=== PATIENT | male | born 1965 | race Caucasian/White ===

== ENCOUNTER 2020-09-19 07:54 | Observation (INO) | payer OTHER ==
[~2020-09-19] VITALS: Ht 182.9 cm; Wt 102.0 kg
[2020-09-19] VITALS (13 sets, daily range): BP systolic 118–174; BP diastolic 52–103
[~2020-09-19 07:54] MED LIST: PRILOSEC40 MG PO
[2020-09-19 08:29] LABS: CALCIUM 9.2 mg/dL (8.5-10.1); CREATININE 0.9 mg/dL (0.7-1.3); POTASSIUM 4.4 mmol/L (3.5-5.1)
[2020-09-19 08:36] LABS: BASOPHILS 0.6 % (0.0-2.0); EOSINOPHILS 0.5 % (0.0-3.0); HEMATOCRIT 42.3 % (42.0-52.0); HEMOGLOBIN 14.5 gm/dL (14.0-18.0); MCH 34.6 pg (26.0-34.0); MCHC 34.3 g/dL (28.0-37.0); MCV 100.8 fL (80.0-100.0); MONOCYTES 6.9 % (1.0-8.0); PLATELET COUNT 212 thou/uL (150-400); RBC 4.19 mil/uL (4.50-6.00); RDW 13.1 % (10.5-14.5); WBC 7.6 thou/uL (4.0-11.0)
[2020-09-19 08:39] LABS: ALBUMIN 4.3 g/dL (3.4-5.0); TOTAL BILIRUBIN 0.6 mg/dL (0.2-1.0); TOTAL PROTEIN 7.3 g/dL (6.4-8.2); TROPONIN-I 0.18 ng/mL (<0.06)
[2020-09-19 10:41] LABS: CHOLESTEROL 186 mg/dL (<200); HDL CHOLESTEROL 86 mg/dL (>40); LDL CHOLESTEROL 94 mg/dL (<100); TC:HDL 2.2 Ratio (Not establshd); TRIGLYCERIDE 34 mg/dL (<150); VLDL 7 mg/dL (<40)
[2020-09-19] MEDS ORDERED: VITAMIN C500 M2 PO (11:00)
[2020-09-19] MEDS ORDERED: ADVIL200 M3 PO (11:01)
--- NOTE | 2020-09-19 12:09 | 2DMMODE ---
[facility] [place] [address] 2 D/M-MODE ECHOCARDIOGRAM Name: CEASAR BREAUX Room #: 170-2 ADM IN M.R.#: [id number] Admission: 09/19/20 Attend Phys: Jed Cutler MD, Discharge: Date of : 61 Report #: [id number] THIS REPORT FOR: cc: Elizabeth Sequeira K. Steven DO Santiago, Patrick MD [facility] ~ APPROVED REPORT Study performed: 09/19/2020 10:15:31 EXAM: Comprehensive 2D, Doppler, and color-flow Echocardiogram Patient Location: ER Room #: 2 Status: routine BSA: 2.26 HR: 75 bpm BP: 153/95 mmHg Rhythm: NSR Other Information Study Quality: Good Indications Elevated Troponin Chest Pain 2D Dimensions RVDd: 37.47 mm IVSd: 12.86 (7-11mm) LVOT Diam: 22.03 (18-24mm) LVDd: 51.57 mm PWd: 13.64 (7-11mm) Ascending Ao: 37.17 (22-36mm) LVDs: 32.46 (25-40mm) Aortic Root: 33.99 mm IVC: 19.00 mm Volumes Left Atrial Volume (Systole) Single Plane 4CH: 49.02 mL Single Plane 2CH: 53.73 mL LA ESV Index: 27.00 mL/m2 Aortic Valve AoV Peak Jose Alberto.: 1.61 m/s AO Peak Gr.: 10.39 mmHg LVOT Max P.63 mmHg LVOT Max V: 1.19 m/s MARCELO Vmax: 2.81 cm2 [facility] [address] [place] [address] 2 D/M-MODE ECHOCARDIOGRAM Name: CEASAR BREAUX ELIOT Room #: 170-2 [facility] IN ..#: [id number] Admission: 09/19/20 Attend Phys: Jed Cutler, Discharge: Date of : 61 Report #: [id number] Mitral Valve E/A Ratio: 0.9 MV Decel. Time: 197.60 ms MV E Max Jose Alberto.: 0.98 m/s MV A Jose Alberto.: 1.13 m/s MV PHT: 57.30 ms IVRT: 124.57 ms Pulmonary Valve PV Peak Jose Alberto.: 0.92 m/s PV Peak Gr.: 3.40 mmHg Pulmonary Vein P Vein S: 0.60 m/s P Vein A: 0.31 m/s P Vein D: 0.35 m/s P Vein A Dur.: 115.3 msec P Vein S/D Ratio: 1.71 Left Ventricle The left ventricle is normal size. There is normal LV segmental wall motion. Mild concentric left ventricular hypertrophy. The left ventricular systolic function is normal. The left ventricular ejection fraction is within the normal range. The left ventricular diastolic function is normal. Right Ventricle The right ventricle is normal size. The right ventricular systolic function is normal. Atria The left atrium size is normal. The right atrium size is normal. Aortic Valve The aortic valve is normal in structure. No aortic regurgitation is present. There is no aortic valvular stenosis. Mitral Valve The mitral valve is normal in structure. Trace mitral regurgitation. No evidence of mitral valve stenosis. Tricuspid Valve The tricuspid valve is normal in structure. There is no tricuspid valve regurgitation noted. Pulmonic Valve The pulmonary valve is normal in structure. There is no pulmonic [facility] [address] [place] [address] 2 D/M-MODE ECHOCARDIOGRAM Name: CEASAR BREAUX [place] Room #: 170-2 ADM IN M.R.#: [id number] Admission: 09/19/20 Attend Phys: Jed Cutler, Discharge: Date of : 61 Report #: [id number] valvular regurgitation. Great Vessels The aortic root is normal in size. IVC is normal in size and collapses >50% with inspiration. Pericardium There is no pericardial effusion. <Conclusion> Normal left ventricle size Mild left ventricular concentric hypertrophy Grade 1 diastolic dysfunction EF 60%, no obvious segmental wall motion abnormality detected Normal RV size/function Normal atrial size Normal aortic/mitral valve structure and function No tricuspid valve insufficiency No pericardial effusion <ELECTRONICALLY SIGNED> By: Florencio Garcia MD, FACC 09/19/201207 07 07 Florencio Garcia MD, [facility] /INF
--- NOTE | 2020-09-19 13:53 | EKG ---
[facility] [address] [place] [address] ELECTROCARDIOGRAM REPORT Name: CEASAR BREAUX [place] Room #: 211-P ADM IN M.R.#: [id number] Admission: 09/19/20 Attend Phys: Jed Cutler MD, Discharge: Date of : 61 Report #: [id number] THIS REPORT FOR: cc: Elizabeth Sequeira K. Steven DO Lammoglia, Francisco J. MD ~ <ELECTRONICALLY SIGNED> By: Chester Johnson MD 09/19/20 1352 1350 135 Chester Johnson MD /EPI
--- NOTE | 2020-09-19 17:12 | CATHLAB ---
[facility] [place] [address] INVASIVE PROCEDURE REPORT Name: CEASAR BREAUX Room #: 211-P ADM IN M.R.#: [id number] Admission: 09/19/20 Attend Phys: Jed Cutler MD, Discharge: Date of : 61 Report #: [id number] THIS REPORT FOR: cc: Elizabeth Sequeira K. Steven DO Mancuso, Gerald M. MD [facility] ~ APPROVED REPORT Study performed: 09/19/2020 14:12:23 Patient Details Patient Status: In-Patient Room #: 211 The patient is a 54 year-old male Event Personnel Jed Cutler Wrapper Stripper, Dandy Saenz RN, Ilana Huerta RTR Scrub, Josiah Lee RTR Monitor Procedures Performed Left Heart Cath w/or w/o Coronaries [id number] [facility] Supravalvular Aortography Injection 6811168 ISVA Renal Bilateral Peripheral Angiography [id number] CVRENALBIL Art Access - R femoral artery* 94364 Initial Mod Sed Same Phys/QHP Gr5y 097308 51552 Mod Sed Same Phys/QHP Ea 681154 Indication Chest pain Procedure Narrative The Right Groin^ was infiltrated with 1% Lidocaine subcutaneous anesthesia. A PINNACLE 6FR Sheath #[id number] sheath was inserted into the RFA^. Coronary angiography was performed using coronary diagnostic catheters. The right coronary system was accessed and visualized with a 6FR JR4 catheter. The left coronary system was accessed and visualized with a 6FR AL II #[id number] catheter. The left ventricle was accessed and visualized with a PIGTAIL catheter. Left ventriculogram was performed in 30 degree projection. An aortogram of the abdominal aorta was performed. Closure device was deployed with a Fr MYNXGRIP 6/7F #[id number]. There was no hematoma. Intraoperative Conscious Sedation Sedation start time: 15:09 Case end Time: 15:50 Fentanyl 50 mcg Versed 1 mg [facility] [place] [place] [address] INVASIVE PROCEDURE REPORT Name: CEASAR BREAUX ELIOT Room #: 211-P [facility] IN .R.#: [id number] Admission: 09/19/20 Attend Phys: Jed Cutler, Discharge: Date of : 61 Report #: [id number] Fluoro Time: 7.80 minutes Dose: DAP 07168.40 cGycm2 1768 mGy Contrast Type and Amount: Omnipaque 165 ml Hemodynamics The aortic pressure is 165/82 mmHg with a mean of 113 mmHg. The left ventricular pressure is 148/2 mmHg with a mean of mmHg. The left ventricular end diastolic pressure is 22 mmHg. Conclusion #1. Normal left ventricular size and systolic function EF 60%. #2 supravalvular aortogram revealing mild aortic insufficiency and moderate dilatation ectasia of the ascending aorta. #3 left main mildly calcified giving rise to LAD and circumflex. Ostial left main 30% range. #4 the LAD is mildly diseased no occlusive disease noted this extends around the apex. #5 circumflex OM with an eccentric 20 to 30% proximal irregularity feeling 1 large OM branch widely patent anatomically nondominant. #6 large dominant right coronary artery without occlusive disease. #7 selective bilateral renal artery angiography reveals wide patency with mild ostial disease. Recommendations and plan: Patient with small elevation in troponin not clear the significance of this does not appear to be epicardial coronary disease. No evidence of a Tocco Subu. Mild supravalvular aortic ectasia dilatation is noted. Possible vasospasm although no clear evidence of this. Will initiate calcium channel curly and nitrate therapy. Transferred to CCU. <ELECTRONICALLY SIGNED> By: Jed Cutler MD, FACC 09/19/201710 10 10 Jed Cutler MD, FACC /INF
--- NOTE | 2020-09-19 17:29 | NUR ---
PT ADMITED FROM ER. ADMISSION HX AND ASSESSMENT COMPLETED. REPORT HAVING CHEST PAIN. CHEST PAIN PROTOCAL INITIATED. NEW ORDERS NOTED. HAD START CARDIAC CATH WITH NO INTERVENTION. BED REST FOR 3 HOURS. RIGHT GROIN INCISION C/D/I. NO HEMATOMA NOTED. VSS.
[2020-09-20 01:00] VITALS: BP 140/88
[2020-09-20 04:30] VITALS: BP 129/86
[2020-09-20 07:03] VITALS: BP 140/97
--- NOTE | 2020-09-20 07:29 | EKG ---
[facility] [address] [place] [address] ELECTROCARDIOGRAM REPORT Name: CEASAR BREAUX [place] Room #: 211-P ADM IN M.R.#: [id number] Admission: 09/19/20 Attend Phys: Jed Cutler MD, Discharge: Date of : 61 Report #: [id number] THIS REPORT FOR: cc: Elizabeth Sequeira K. Steven DO Santiago, Patrick MD FACC ~ <ELECTRONICALLY SIGNED> By: Florencio Garcia MD, FACC 09/20/20 0729 0756 0756 Florencio Garcia MD, FACC /EPI
--- NOTE | 2020-09-20 07:33 | EKG ---
[facility] [address] [place] [address] ELECTROCARDIOGRAM REPORT Name: CEASAR BREAUX [place] Room #: 211-P ADM IN M.R.#: [id number] Admission: 09/19/20 Attend Phys: Jed Cutler MD, Discharge: Date of : 61 Report #: [id number] THIS REPORT FOR: cc: Elizabeth Sequeira K. Steven DO Santiago, Patrick MD [facility] ~ <ELECTRONICALLY SIGNED> By: Florencio Garcia MD, FACC 09/20/20 0733 1 1 Florencio Garcia MD, FACC /EPI
[2020-09-20] MEDS ORDERED: LIPITOR40 MG PO (08:05)
[2020-09-20] MEDS ORDERED: NORVASC5 MG PO (08:05)
[2020-09-20] MEDS ORDERED: IMDUR 30 MG TAB30 M1 PO (08:05)
--- NOTE | 2020-09-20 08:33 | NUR ---
ASSUMED CARE OF THE PATIENT AT 1900; AOX4 AND STEADY ON AMBULATION; CIWA SCORING 2 OR LESS; SR/1AVB ON THE MONITOR WITH HR 70-80s; ONETIME NORVASC ADMINISTERED D/T ELEVATED DBP; C/O OF NON-CARDIAC CHEST PAIN MANAGED WITH MEDICATION; PATIENT SLEPT QUIETLY THROUGHOUT MOST OF THE NOC; PLAN IS FOR PATIENT TO HAVE EGD PROCEDURE TODAY AND D/C TO HOME; WILL CONTINUE TO MONITOR.
[2020-09-20 12:04] VITALS: BP 140/97
--- NOTE | 2020-09-20 12:39 | NUR ---
PT CAME IN WITH CHEST PAIN AND THOUGHT HE WAS POSSIBLY HAVING A HEART ATTACK. PT WAS TOLD RESULTS OF CARDIAC IMAGING AND TESTING NEGATIVE. PT WAS EDUCATED ON THE POSSIBILITY OF CHEST PAIN BEING RELATED TO GI ISSUES. GI EGD WAS SCHEDULED, BUT CANCELLED DUE TO POSITIVE COVID TEST. GE EGD WAS RESCHEDULED PART OF PROTOCOL REGARDING POSITIVE COVID TEST. PT WAS FRUSTRATED BUT UNDERSTOOD THE RESULTS. PT REFUSED WHEEL CHAIR, AND WALKED WITH TIN FLOPPER ESCORT TO MAIN ENTRANCE.
== END 2020-09-20 12:44 | disposition home or self-care (01) ==
LOC: ER 07:54 → EROBS 10:53 → 2N 10:53
PROVIDERS: Emergency Medicine; Nurse Practitioner Adult Health; ADMIT Internal Medicine Cardiovascular Disease; ATTEND Internal Medicine Cardiovascular Disease
DX: U07.1 COVID-19 (principal); R07.89 Other chest pain; I10 Essential (primary) hypertension; E78.5 Hyperlipidemia, unspecified; I71.2 Thoracic aortic aneurysm, without rupture; F10.10 Alcohol abuse, uncomplicated; I25.10 Atherosclerotic heart disease of native coronary artery without angina pectoris; K31.1 Adult hypertrophic pyloric stenosis; F17.210 Nicotine dependence, cigarettes, uncomplicated; Z79.899 Other long term (current) drug therapy
CPT/HCPCS: 10081